=== PATIENT | female | born 1985 | race Caucasian/White ===

== ENCOUNTER 2016-11-17 20:27 | Emergency (ER) | payer OTHER ==
[~2016-11-17] VITALS: Ht 160 cm; Wt 113.4 kg
[~2016-11-17 20:27] MED LIST: ALAVERT10 M1 PO; AMBIEN5 MG PO; BACTRIM DS 8001 TA1 PO; BENADRYL25 M1 PO; BENADRYL50 MG PO; CIPRO500 MG PO; CIPROFLOXACIN500 MG PO; CLARITIN10 MG PO; CLARITIN5 MG/5 ML PO; CLEOCIN150 MG PO; CLINDAMYCIN HC300 MG PO; CLINDAMYCIN150 MG PO; CORTISPORIN SUS10 ML OT; DAYPRO600 M1 PO; EFFEXOR XR75 M1 PO; EFFEXOR XR75 MG PO; ELIMITE 5%60 GM T; ELMIRON100 MG PO; HYDROCODONE BIT1 T11 PO; LUNESTA1 M1 PO; MEDROL DOSEPAK4 MG PO; MONONESSA 35 MC1 TA2 PO; MUCINEX COLD-F177 ML PO; NORCO 5-325 TA1 EACH PO; PREDNISONE10 MG PO; PRILOSEC10 M1 PO; PRILOSEC10 MG; PRILOSEC20 M1 PO; PROAIR RESPICL90 MCG IH; PROVENTIL0.09 MG/A1 INH; PYRIDIUM200 M1 PO; PYRIDIUM200 MG PO; Peridex 473 ML473 ML PO; SINGULAIR10 M1 PO; SINGULAIR10 MG PO; TRAMADOL HCL50 MG PO; TYLENOL325 M1 PO; ULTRAM50 MG PO; VALIUM10 MG PO; VIBRAMYCIN100 MG PO; VICODIN 5/500 505 MG PO; XANAX2 MG PO; ZEGERID 40 MG PO; ZITHROMAX250 MG PO; ZOFRAN4 MG PO; ZOVIRAX 5%2 GM T; ZOVIRAX400 MG PO
[2016-11-17 20:59] VITALS: BP 141/99
[2016-11-17] MEDS ORDERED: NAPROSYN500 MG PO (21:35)
[2016-11-17] MEDS ORDERED: CLINDAMYCIN HC300 MG PO (21:35)
== END 2016-11-17 21:02 | disposition home or self-care (01) ==
LOC: ED 20:27
DX: K08.89 Other specified disorders of teeth and supporting structures (principal); Z98.890 Other specified postprocedural states; Z98.51 Tubal ligation status; Z90.49 Acquired absence of other specified parts of digestive tract; Z79.899 Other long term (current) drug therapy; Z91.030 Bee allergy status; Z88.5 Allergy status to narcotic agent; Z88.0 Allergy status to penicillin; Z88.6 Allergy status to analgesic agent

== ENCOUNTER 2016-12-02 02:14 | Emergency (ER) | payer OTHER ==
[~2016-12-02] VITALS: Ht 160 cm; Wt 113.4 kg
[~2016-12-02 02:14] MED LIST changes: +NAPROSYN500 MG PO
[2016-12-02 02:21] VITALS: BP 146/86
[2016-12-02 02:53] LABS: BILIRUBIN NEGATIVE (NEGATIVE); BLOOD 3+ (NEGATIVE); CLARITY CLOUDY (CLEAR); COLOR YELLOW (YELLOW); GLUCOSE NEGATIVE (NEGATIVE); KETONE NEGATIVE (NEGATIVE); LEUKO ESTERASE 3+ (NEGATIVE); NITRITE NEGATIVE (NEGATIVE); PH 5.5 (5.0-9.0); PROTEIN 2+ (NEGATIVE); SPECIFIC GRAVITY 1.015 (1.005-1.030); UROBILINOGEN 0.2 E.U./dl (0.2-1.0)
[2016-12-02 03:03] LABS: RBC 31-40 rbc/hpf (0-2); WBC TNTC wbc/hpf (0-5)
[2016-12-02 03:04] LABS: URINE REFLEX COMMENT YES (NO)
[2016-12-02] MEDS ORDERED: PYRIDIUM200 M1 PO (03:28)
[2016-12-02] MEDS ORDERED: BACTRIM DS 8001 TA1 PO (03:28)
== END 2016-12-02 05:01 | disposition home or self-care (01) ==
LOC: ED 02:14
PROVIDERS: Emergency Medicine
DX: N39.0 Urinary tract infection, site not specified (principal); R31.9 Hematuria, unspecified; Z98.51 Tubal ligation status; Z98.890 Other specified postprocedural states; Z90.49 Acquired absence of other specified parts of digestive tract; Z91.030 Bee allergy status; Z88.5 Allergy status to narcotic agent; Z88.0 Allergy status to penicillin; Z88.6 Allergy status to analgesic agent; Z79.899 Other long term (current) drug therapy

== ENCOUNTER 2016-12-19 20:27 | Emergency (ER) | payer OTHER ==
[~2016-12-19] VITALS: Ht 160 cm; Wt 113.4 kg
[2016-12-19 20:42] VITALS: BP 135/69
[2016-12-19] MEDS ORDERED: MEDROL DOSEPAK4 MG PO (20:51)
== END 2016-12-19 21:03 | disposition home or self-care (01) ==
LOC: ED 20:27
DX: T63.441A Toxic effect of venom of bees, accidental (unintentional), initial encounter (principal); Z90.49 Acquired absence of other specified parts of digestive tract; Z88.0 Allergy status to penicillin; Z88.6 Allergy status to analgesic agent; Z88.8 Allergy status to other drugs, medicaments and biological substances; Y92.9 Unspecified place or not applicable

== ENCOUNTER 2016-12-31 14:06 | Emergency (ER) | payer OTHER ==
[~2016-12-31] VITALS: Ht 160 cm; Wt 113.4 kg
[2016-12-31 14:30] VITALS: BP 148/80
== END 2016-12-31 16:30 | disposition home or self-care (01) ==
LOC: ED 14:06
DX: S93.601A Unspecified sprain of right foot, initial encounter (principal); Z91.030 Bee allergy status; Z88.0 Allergy status to penicillin; Z88.6 Allergy status to analgesic agent; Z79.899 Other long term (current) drug therapy; W18.39XA Other fall on same level, initial encounter; Y93.89 Activity, other specified; Y92.89 Other specified places as the place of occurrence of the external cause; Y99.8 Other external cause status

== ENCOUNTER → 2017-01-26 | Outpatient (CLI) | payer OTHER | END | disposition home or self-care (01) | LOC: MRI 01-23 09:00 | DX: S99.921A Unspecified injury of right foot, initial encounter (principal); Z91.81 History of falling; X58.XXXA Exposure to other specified factors, initial encounter; Y93.89 Activity, other specified; Y92.89 Other specified places as the place of occurrence of the external cause; Y99.8 Other external cause status ==

== ENCOUNTER 2017-02-09 07:41 | Emergency (ER) | payer OTHER ==
[~2017-02-09] VITALS: Ht 160 cm; Wt 113.4 kg
[2017-02-09 07:46] VITALS: BP 144/89
[2017-02-09] MEDS ORDERED: ZITHROMAX250 MG PO (08:07)
== END 2017-02-09 08:49 | disposition home or self-care (01) ==
LOC: ED 07:41
DX: J06.9 Acute upper respiratory infection, unspecified (principal); H92.02 Otalgia, left ear; R50.9 Fever, unspecified; Z88.0 Allergy status to penicillin; Z88.6 Allergy status to analgesic agent; Z91.030 Bee allergy status; Z79.899 Other long term (current) drug therapy

== ENCOUNTER 2017-02-21 03:04 | Emergency (ER) | payer OTHER ==
[~2017-02-21] VITALS: Ht 160 cm; Wt 108.9 kg
[2017-02-21 03:10] VITALS: BP 125/88
[2017-02-21] MEDS ORDERED: CORTISPORIN SUS10 ML OT (03:57)
[2017-02-21] MEDS ORDERED: NORCO 5-325 TA1 EACH PO (03:57)
[2017-02-21] MEDS ORDERED: CIPRO500 MG PO (03:57)
== END 2017-02-21 04:00 | disposition home or self-care (01) ==
LOC: ED 03:04
DX: H60.502 Unspecified acute noninfective otitis externa, left ear (principal); Z91.030 Bee allergy status; Z88.6 Allergy status to analgesic agent; Z88.0 Allergy status to penicillin; Z79.899 Other long term (current) drug therapy

== ENCOUNTER 2017-07-12 16:33 | Emergency (ER) | payer OTHER ==
[~2017-07-12] VITALS: Ht 162.5 cm; Wt 113.4 kg
[2017-07-12 18:45] VITALS: BP 135/83
[2017-07-12] MEDS ORDERED: PREDNISONE20 M1 PO (18:56)
[2017-07-12] MEDS ORDERED: ZYRTEC10 MG PO (18:56)
[2017-07-12] MEDS ORDERED: ROBITUSSIN DM 105 ML PO (18:59)
== END 2017-07-12 18:59 | disposition home or self-care (01) ==
LOC: ED 16:33
DX: B34.9 Viral infection, unspecified (principal); Z88.0 Allergy status to penicillin; Z91.030 Bee allergy status; Z88.8 Allergy status to other drugs, medicaments and biological substances; Z79.899 Other long term (current) drug therapy; Z98.51 Tubal ligation status

== ENCOUNTER 2017-09-03 19:01 | Emergency (ER) | payer OTHER ==
[~2017-09-03] VITALS: Ht 162.5 cm; Wt 114.3 kg
[~2017-09-03 19:01] MED LIST changes: +PREDNISONE20 M1 PO; +ROBITUSSIN DM 105 ML PO; +ZYRTEC10 MG PO
[2017-09-03 19:17] VITALS: BP 155/92
[2017-09-03] MEDS ORDERED: KENALOG 0.1%80 GM T (19:47)
== END 2017-09-03 19:53 | disposition home or self-care (01) ==
LOC: ED 19:01
DX: S20.469A Insect bite (nonvenomous) of unspecified back wall of thorax, initial encounter (principal); S10.86XA Insect bite of other specified part of neck, initial encounter; Z88.0 Allergy status to penicillin; Z91.030 Bee allergy status; Z88.8 Allergy status to other drugs, medicaments and biological substances; Z79.899 Other long term (current) drug therapy; W57.XXXA Bitten or stung by nonvenomous insect and other nonvenomous arthropods, initial encounter; Y93.89 Activity, other specified; Y92.89 Other specified places as the place of occurrence of the external cause; Y99.8 Other external cause status

== ENCOUNTER 2017-10-09 14:58 | Emergency (ER) | payer OTHER ==
[~2017-10-09 14:58] MED LIST changes: +KENALOG 0.1%80 GM T
[2017-10-09 15:01] VITALS: BP 130/78
[2017-10-09] MEDS ORDERED: ZOFRAN ODT4 MG SL (16:08)
== END 2017-10-09 16:12 | disposition home or self-care (01) ==
LOC: ED 14:58
DX: B34.9 Viral infection, unspecified (principal); Z98.890 Other specified postprocedural states; Z98.51 Tubal ligation status; Z90.49 Acquired absence of other specified parts of digestive tract; Z79.899 Other long term (current) drug therapy; Z91.030 Bee allergy status; Z88.5 Allergy status to narcotic agent; Z88.0 Allergy status to penicillin; Z88.6 Allergy status to analgesic agent

== ENCOUNTER 2018-02-13 20:17 | Emergency (ER) | payer OTHER ==
[~2018-02-13] VITALS: Ht 160 cm; Wt 115.7 kg
[~2018-02-13 20:17] MED LIST changes: +ZOFRAN ODT4 MG SL
[2018-02-13 20:18] VITALS: BP 142/80
[2018-02-13] MEDS ORDERED: CLINDAMYCIN HC300 MG PO (20:32)
== END 2018-02-13 21:08 | disposition home or self-care (01) ==
LOC: ED 20:17
DX: K08.89 Other specified disorders of teeth and supporting structures (principal); Z91.030 Bee allergy status; Z88.0 Allergy status to penicillin; Z88.6 Allergy status to analgesic agent; Z79.899 Other long term (current) drug therapy

== ENCOUNTER 2018-04-03 13:29 | Emergency (ER) | payer OTHER ==
[~2018-04-03] VITALS: Ht 160 cm; Wt 72.6 kg
--- NOTE | ~2018-04-03 | EKG ---
[place], [place] ELECTROCARDIOGRAM REPORT NAME: LUAN PAINTER UNIT #: [id number] ROOM: DOCTOR: EPIPHANY DRAFT REPORT BIRTHDATE: [birth year] [facility] Test Date: 2018-04-03 Test Time: 14:56:48 Pat Name: LUAN PAINTER Department: Room: Gender: F Adobe Developer: Sonal Herron : 1985 Requested By: NANCY BANSAL Order Number: [id number] Reading MD: Ludwig Britton MD Measurements Intervals [place] Rate: 88 P: -2 MO: 173 QRS: 64 QRSD: 84 T: 47 QT: 347 QTc: 420 Interpretive Statements Sinus rhythm Normal ECG No previous ECG available for comparison Electronically Signed On 04-08-2018 12:12:09 PDT by Ludwig Britton MD CM:EKGRPT:ELECTROCARDIOGRAM REPORT [id number] NANCY BANSAL EPIPHANY DRAFT REPORT NANCY BANSAL
[2018-04-03 13:32] VITALS: BP 149/91
[2018-04-03] MEDS ORDERED: BUPROPION HCL300 MG PO (14:07)
[2018-04-03] MEDS ORDERED: ADDERALL XR20 MG PO (14:07)
[2018-04-03] MEDS ORDERED: MINIPRESS1 M1 PO (14:08)
[2018-04-03] MEDS ORDERED: HYDROXYZINE PAM50 MG PO (14:09)
[2018-04-03 14:51] LABS: BASO # 0.1 10*3/uL (0.0-0.1); BASO % 0.6 % (0.0-1.0); EOS # 0.1 10*3/uL (0.0-0.4); EOS % 1.4 % (1.0-4.0); HEMATOCRIT 40.5 % (37.0-47.0); LYMPH # 1.4 10*3/uL (1.3-4.4); LYMPH % 14.3 % (27.0-41.0); MEAN CELL VOLUME 86.2 fl (81.0-99.0); MEAN CORPUSCULAR HGB 27.7 pg (27.0-31.0); MEAN CORPUSCULAR HGB CONC 32.1 g/dl (33.0-37.0); MEAN PLATELET VOLUME 10.8 fl (9.6-12.3); MONO # 0.6 10*3/uL (0.1-1.0); MONO % 5.5 % (3.0-9.0); NEUT # 7.8 10*3/uL (2.3-7.9); PLATELET COUNT AUTOMATED 281 10*3/uL (130-400); RED CELL DISTRI WIDTH 12.6 % (0-14.5)
[2018-04-03 15:07] LABS: ALBUMIN 3.6 gm/dl (3.1-4.5); ALKALINE PHOSPHATASE 95 U/L (45-117); BUN 6 mg/dl (7-24); CHLORIDE 107 mmol/L (98-107); CREATININE 0.89 mg/dL (0.55-1.02); POTASSIUM 3.5 mmol/L (3.5-5.1); SGOT/AST 11 IU/L (3-35); SGPT/ALT 20 U/L (12-78); SODIUM 140 mmol/L (136-145); TOTAL PROTEIN 7.8 gm/dL (6.4-8.2)
[2018-04-03 15:13] LABS: TROPONIN I < 0.015 ng/ml (<0.045)
[2018-04-03] MEDS ORDERED: PREDNISONE10 MG PO (15:55)
[2018-04-03] MEDS ORDERED: ZITHROMAX250 MG PO (15:55)
[2018-05-21] MEDS ORDERED: BUPROPION HYDR150 M3 PO (10:33)
[2018-05-21] MEDS ORDERED: PRILOSEC20 M1 PO (10:35)
[2018-05-21] MEDS ORDERED: ZYRTEC10 MG PO (10:36)
[2018-05-21] MEDS ORDERED: SINGULAIR5 MG PO (10:36)
[2018-05-22] MEDS ORDERED: CLINDAMYCIN150 MG PO (08:57)
[2018-05-22] MEDS ORDERED: NORCO 5-325 TA1 EACH PO (08:58)
== END 2018-04-03 16:11 | disposition home or self-care (01) ==
LOC: ED 13:29
PROVIDERS: Nurse Practitioner
DX: J40 Bronchitis, not specified as acute or chronic (principal); H92.09 Otalgia, unspecified ear; Z90.49 Acquired absence of other specified parts of digestive tract; Z98.51 Tubal ligation status; Z79.899 Other long term (current) drug therapy; Z91.030 Bee allergy status; Z88.0 Allergy status to penicillin; Z88.6 Allergy status to analgesic agent; Z88.8 Allergy status to other drugs, medicaments and biological substances

== ENCOUNTER → 2018-05-08 | Outpatient (CLI) | payer OTHER ==
[~2018-05-08] MED LIST changes: +ADDERALL XR20 MG PO; +BUPROPION HCL300 MG PO; +BUPROPION HYDR150 M3 PO; +HYDROXYZINE PAM50 MG PO; +MINIPRESS1 M1 PO; +SINGULAIR5 MG PO
[2018-05-08 13:32] LABS: BASO # 0.1 10*3/uL (0.0-0.1); BASO % 0.9 % (0.0-1.0); EOS # 0.1 10*3/uL (0.0-0.4); EOS % 1.3 % (1.0-4.0); HEMATOCRIT 40.2 % (37.0-47.0); HEMOGLOBIN 12.8 g/dl (12.0-16.0); LYMPH # 2.2 10*3/uL (1.3-4.4); LYMPH % 32.1 % (27.0-41.0); MEAN CELL VOLUME 86.8 fl (81.0-99.0); MEAN CORPUSCULAR HGB 27.6 pg (27.0-31.0); MEAN CORPUSCULAR HGB CONC 31.8 g/dl (33.0-37.0); MONO # 0.3 10*3/uL (0.1-1.0); MONO % 3.9 % (3.0-9.0); NEUT # 4.2 10*3/uL (2.3-7.9); NEUT % 61.7 % (47.0-73.0); PLATELET COUNT AUTOMATED 345 10*3/uL (130-400); RED BLOOD COUNT 4.63 10*6/uL (4.10-5.10); RED CELL DISTRI WIDTH 12.9 % (0-14.5); WHITE BLOOD COUNT 6.8 10*3/uL (4.8-10.8)
[2018-05-08 14:02] LABS: ALBUMIN 3.6 gm/dl (3.1-4.5); ALKALINE PHOSPHATASE 78 U/L (45-117); BUN 9 mg/dl (7-24); CHLORIDE 106 mmol/L (98-107); CHOLESTEROL 185 mg/dL (<200); CREATININE 0.74 mg/dL (0.55-1.02); HDL CHOLESTEROL 73 mg/dl (40-60); LDL CHOLESTEROL 97 mg/dL (9-159); LIPASE 152 U/L (73-393); POTASSIUM 3.7 mmol/L (3.5-5.1); SGOT/AST 15 IU/L (3-35); SGPT/ALT 24 U/L (12-78); SODIUM 140 mmol/L (136-145); TOTAL PROTEIN 8.1 gm/dL (6.4-8.2); TRIGLYCERIDES 74 mg/dl (<150); VLDL CHOLESTEROL 15 mg/dL (6-40)
[2018-05-08 14:23] LABS: VITAMIN D, 25-HYDROXY 25.2 ng/mL (30-100)
== END | disposition home or self-care (01) ==
LOC: LAB 12:41 → CT 13:00
PROVIDERS: Nurse Practitioner Family
DX: K21.9 Gastro-esophageal reflux disease without esophagitis (principal); J45.909 Unspecified asthma, uncomplicated; R11.0 Nausea; K92.1 Melena; Z90.49 Acquired absence of other specified parts of digestive tract

== ENCOUNTER → 2018-05-28 | Outpatient (CLI) | payer OTHER | LOC: US 13:13 | DX: R10.2 Pelvic and perineal pain (principal) ==

== ENCOUNTER 2019-01-23 22:22 | Emergency (ER) | payer OTHER ==
[~2019-01-23] VITALS: Ht 160 cm; Wt 114.8 kg
[~2019-01-23 22:22] MED LIST changes: +KENALOG 0.025%15 GM T
[2019-01-23 22:23] VITALS: BP 169/88
== END 2019-01-24 00:49 | disposition home or self-care (01) ==
LOC: ED 22:22
DX: S93.602A Unspecified sprain of left foot, initial encounter (principal); Z79.899 Other long term (current) drug therapy; Z91.030 Bee allergy status; Z88.0 Allergy status to penicillin; Z88.6 Allergy status to analgesic agent; W23.0XXA Caught, crushed, jammed, or pinched between moving objects, initial encounter; Y93.89 Activity, other specified; Y92.89 Other specified places as the place of occurrence of the external cause; Y99.0 Civilian activity done for income or pay

== ENCOUNTER 2019-02-11 12:49 | Emergency (ER) | payer OTHER ==
[~2019-02-11] VITALS: Ht 160 cm; Wt 111.1 kg
[2019-02-11 12:51] VITALS: BP 155/80
[2019-02-11 13:23] LABS: BILIRUBIN NEGATIVE (NEGATIVE); BLOOD 3+ (NEGATIVE); CLARITY CLOUDY (CLEAR); COLOR YELLOW (YELLOW); GLUCOSE NEGATIVE (NEGATIVE); KETONE NEGATIVE (NEGATIVE); LEUKO ESTERASE 3+ (NEGATIVE); NITRITE NEGATIVE (NEGATIVE); PH 7.5 (5.0-9.0); UROBILINOGEN 0.2 E.U./dl (0.2-1.0)
[2019-02-11 13:32] LABS: RBC TNTC rbc/hpf (0-2); WBC TNTC wbc/hpf (0-5)
[2019-02-11 13:33] LABS: BACTERIA 2+
[2019-02-11 13:36] LABS: BASO # 0.1 10*3/uL (0.0-0.1); BASO % 0.5 % (0.0-1.0); EOS # 0.2 10*3/uL (0.0-0.4); EOS % 2.1 % (1.0-4.0); HEMATOCRIT 41.1 % (37.0-47.0); HEMOGLOBIN 13.2 g/dl (12.0-16.0); LYMPH # 1.6 10*3/uL (1.3-4.4); LYMPH % 15.4 % (27.0-41.0); MEAN CORPUSCULAR HGB 27.6 pg (27.0-31.0); MEAN CORPUSCULAR HGB CONC 32.1 g/dl (33.0-37.0); MEAN PLATELET VOLUME 10.8 fl (9.6-12.3); MONO # 0.5 10*3/uL (0.1-1.0); NEUT # 8.2 10*3/uL (2.3-7.9); NEUT % 76.7 % (47.0-73.0); PLATELET COUNT AUTOMATED 312 10*3/uL (130-400); RED BLOOD COUNT 4.78 10*6/uL (4.10-5.10); RED CELL DISTRI WIDTH 12.8 % (0-14.5); WHITE BLOOD COUNT 10.6 10*3/uL (4.8-10.8)
[2019-02-11 13:51] LABS: ALBUMIN 3.7 gm/dl (3.1-4.5); ALKALINE PHOSPHATASE 89 U/L (45-117); BUN 9 mg/dl (7-24); CHLORIDE 108 mmol/L (98-107); CREATININE 0.66 mg/dL (0.55-1.02); POTASSIUM 4.1 mmol/L (3.5-5.1); SGOT/AST 14 IU/L (3-35); SGPT/ALT 19 U/L (12-78); SODIUM 142 mmol/L (136-145)
[2019-02-11] MEDS ORDERED: SEPTDS PO (15:05)
[2019-02-11] MEDS ORDERED: PYRIDIUM200 M1 PO (15:05)
== END 2019-02-11 15:08 | disposition home or self-care (01) ==
LOC: ED 12:49
PROVIDERS: Nurse Practitioner Family
DX: N39.0 Urinary tract infection, site not specified (principal); Z91.030 Bee allergy status; Z88.8 Allergy status to other drugs, medicaments and biological substances; Z88.0 Allergy status to penicillin; Z79.899 Other long term (current) drug therapy; Z90.49 Acquired absence of other specified parts of digestive tract

== ENCOUNTER 2019-02-22 22:44 | Emergency (ER) | payer OTHER ==
[~2019-02-22] VITALS: Ht 160 cm; Wt 112.0 kg
--- NOTE | ~2019-02-22 | EKG ---
[place], [place] ELECTROCARDIOGRAM REPORT NAME: LUAN PAINTER UNIT #: [id number] ROOM: DOCTOR: EPIPHANY DRAFT REPORT BIRTHDATE: [birth year] [facility] [place] Test Date: 2019-02-22 Test Time: 23:41:19 Pat Name: LUAN PAINTER Department: Room: Gender: F Dinkey Locomotive Engineer: Kristan Appiah : 1985 Requested By: LUAN BANSAL Order Number: [id number] Reading MD: Jose Guadalupe Syed MD Measurements Intervals [place] Rate: 72 P: 19 [place]: 173 QRS: 29 QRSD: 89 T: 23 QT: 376 QTc: 412 Interpretive Statements Sinus rhythm ST elevation prob early repol Electronically Signed On 02-23-2019 13:44:48 PDT by Jose Guadalupe Syed MD CM:EKGRPT:ELECTROCARDIOGRAM REPORT [id number] LUAN BANSAL EPIPHANY DRAFT REPORT LUAN BANSAL
[~2019-02-22 22:44] MED LIST changes: +SEPTDS PO
[2019-02-22 22:45] VITALS: BP 139/104
[2019-02-22 23:34] LABS: BASO # 0.1 10*3/uL (0.0-0.1); BASO % 0.8 % (0.0-1.0); EOS # 0.2 10*3/uL (0.0-0.4); EOS % 1.9 % (1.0-4.0); HEMOGLOBIN 12.9 g/dl (12.0-16.0); LYMPH # 3.5 10*3/uL (1.3-4.4); LYMPH % 34.7 % (27.0-41.0); MEAN CELL VOLUME 87.4 fl (81.0-99.0); MEAN CORPUSCULAR HGB 27.5 pg (27.0-31.0); MEAN CORPUSCULAR HGB CONC 31.5 g/dl (33.0-37.0); MEAN PLATELET VOLUME 10.8 fl (9.6-12.3); MONO # 0.5 10*3/uL (0.1-1.0); NEUT # 5.8 10*3/uL (2.3-7.9); NEUT % 57.2 % (47.0-73.0); PLATELET COUNT AUTOMATED 355 10*3/uL (130-400); RED BLOOD COUNT 4.69 10*6/uL (4.10-5.10); RED CELL DISTRI WIDTH 12.8 % (0-14.5)
[2019-02-22 23:53] LABS: ALBUMIN 3.5 gm/dl (3.1-4.5); ALKALINE PHOSPHATASE 78 U/L (45-117); BUN 12 mg/dl (7-24); CHLORIDE 103 mmol/L (98-107); CREATININE 0.71 mg/dL (0.55-1.02); POTASSIUM 3.7 mmol/L (3.5-5.1); SGOT/AST 8 IU/L (3-35); SGPT/ALT 16 U/L (12-78); SODIUM 137 mmol/L (136-145); TOTAL PROTEIN 7.9 gm/dL (6.4-8.2)
[2019-02-23 00:55] LABS: BILIRUBIN NEGATIVE (NEGATIVE); BLOOD NEGATIVE (NEGATIVE); CLARITY CLEAR (CLEAR); COLOR YELLOW (YELLOW); GLUCOSE NEGATIVE (NEGATIVE); KETONE NEGATIVE (NEGATIVE); LEUKO ESTERASE NEGATIVE (NEGATIVE); NITRITE NEGATIVE (NEGATIVE); PH 6.5 (5.0-9.0); UROBILINOGEN 0.2 E.U./dl (0.2-1.0)
[2019-02-23 01:05] LABS: URINE AMPHETAMINES < 1000 (1000ng/ml); URINE BARBITURATES < 200 (200ng/ml); URINE BENZODIAZEPINES < 200 (200ng/ml); URINE CANNABINOIDS (THC) < 50 (50ng/ml); URINE COCAINE < 300 (300ng/ml); URINE METHADONE < 300 (300ng/ml); URINE OPIATES > 300 (300ng/ml)
[2019-02-23 01:06] LABS: URINE PHENCYCLIDINE < 25 (25ng/ml)
[2019-02-23 01:19] LABS: BACTERIA TRACE; EPITHELIAL CELLS 0-5
== END 2019-02-23 01:53 | disposition home or self-care (01) ==
LOC: ED 22:44
PROVIDERS: Nurse Practitioner Family
DX: R55 Syncope and collapse (principal); F17.200 Nicotine dependence, unspecified, uncomplicated; Z91.030 Bee allergy status; Z88.8 Allergy status to other drugs, medicaments and biological substances; Z88.0 Allergy status to penicillin; Z79.2 Long term (current) use of antibiotics; Z79.899 Other long term (current) drug therapy; Z90.49 Acquired absence of other specified parts of digestive tract

== ENCOUNTER → 2019-04-10 | Day surgery (SDC) | payer OTHER ==
[~2019-04-10] VITALS: Ht 160 cm; Wt 109.8 kg
[~2019-04-10] MED LIST changes: +LATU20TA PO; +REMERON30 M1 PO; +ZANTAC 150150 MG PO
--- NOTE | ~2019-04-10 | O ---
[place], [place] OPERATIVE NOTE NAME: LUAN PAINTER UNIT #: [id number] ROOM: DOCTOR: DELMIS STONER MD BIRTHDATE: [birth year] DOS: 04/10/2019 INDICATIONS: This patient is a 33-year-old patient who has presented with chief complaint of abdominal pain has been treated for presumptive diagnosis of diverticulitis, cystitis. ALLERGIES: IBUPROFEN AND PENICILLIN. FAMILY HISTORY: Colonic carcinoma in great aunt and grandfather. PAST SURGICAL HISTORY: Cholecystectomy. PAST MEDICAL HISTORY: Obesity, ADHD, PTS, and depression. SOCIAL HISTORY: Vaping. PROCEDURE: Today's procedure part of investigation is colonoscopy. PREMEDICATION: Propofol. SCOPE: Olympus forward-viewing colonoscope 10L video. REPORT: After putting the patient in left lateral position and application of lubricant to the scope, the scope was introduced. Thereafter, under direct visualization, advanced through the length of colon without difficulty. Hepatic flexure is tortuous. After appropriate maneuver, the scope was negotiated to base of cecum. Photographic series obtained. Air was gradually suctioned, scope was gradually withdrawn from ascending, transverse, descending colon. The patient extubated, tolerated the procedure well. IMPRESSION: Tortuous colon at the hepatic flexure; otherwise, normal colonoscopic examination. PLAN: High fiber diet. ACTIVITY: Ad nitish. FOLLOWUP: As outpatient. The patient was advised with high fiber and no fat diet. [place], [place] OPERATIVE NOTE NAME: LUAN PAINTER UNIT #: [id number] ROOM: DOCTOR: DELMIS STONER MD BIRTHDATE: [birth year] DELMIS STONER MD CM:OPRECORD:OPERATIVE NOTE 1010 1231 DELMIS STONER MD 04/10/19 1231 interface
[2019-04-10 09:11] VITALS: BP 134/83
[2019-04-10 10:05] VITALS: BP 126/90
[2019-04-10 10:20] VITALS: BP 122/80
[2019-04-10 10:35] VITALS: BP 132/68
== END | disposition home or self-care (01) ==
LOC: SDC 04-05 12:30
DX: R10.9 Unspecified abdominal pain (principal); K63.89 Other specified diseases of intestine; K21.9 Gastro-esophageal reflux disease without esophagitis; J45.909 Unspecified asthma, uncomplicated; F41.9 Anxiety disorder, unspecified; F32.9 Major depressive disorder, single episode, unspecified; E66.01 Morbid (severe) obesity due to excess calories; Z98.51 Tubal ligation status; Z98.890 Other specified postprocedural states; Z88.8 Allergy status to other drugs, medicaments and biological substances; Z88.0 Allergy status to penicillin; Z87.19 Personal history of other diseases of the digestive system; Z80.0 Family history of malignant neoplasm of digestive organs; Z90.49 Acquired absence of other specified parts of digestive tract; Z79.899 Other long term (current) drug therapy; Z68.41 Body mass index [BMI] 40.0-44.9, adult

== ENCOUNTER → 2019-04-12 | Outpatient (CLI) | payer OTHER | END | disposition home or self-care (01) | LOC: US 12:42 | DX: R10.9 Unspecified abdominal pain (principal) ==

== ENCOUNTER 2019-04-13 20:03 | Emergency (ER) | payer OTHER ==
[~2019-04-13] VITALS: Ht 160 cm; Wt 109.8 kg
[2019-04-13 20:05] VITALS: BP 129/80
[2019-04-13 20:43] LABS: BASO # 0.1 10*3/uL (0.0-0.1); BASO % 0.4 % (0.0-1.0); EOS # 0.1 10*3/uL (0.0-0.4); EOS % 0.4 % (1.0-4.0); HEMATOCRIT 39.7 % (37.0-47.0); HEMOGLOBIN 12.6 g/dl (12.0-16.0); LYMPH # 1.7 10*3/uL (1.3-4.4); LYMPH % 13.3 % (27.0-41.0); MEAN CELL VOLUME 86.3 fl (81.0-99.0); MEAN CORPUSCULAR HGB 27.4 pg (27.0-31.0); MEAN CORPUSCULAR HGB CONC 31.7 g/dl (33.0-37.0); MEAN PLATELET VOLUME 11.1 fl (9.6-12.3); MONO # 0.4 10*3/uL (0.1-1.0); MONO % 3.5 % (3.0-9.0); NEUT # 10.4 10*3/uL (2.3-7.9); NEUT % 82.2 % (47.0-73.0); PLATELET COUNT AUTOMATED 358 10*3/uL (130-400); RED CELL DISTRI WIDTH 12.9 % (0-14.5); WHITE BLOOD COUNT 12.6 10*3/uL (4.8-10.8)
[2019-04-13 21:00] LABS: ALBUMIN 3.7 gm/dl (3.1-4.5); ALKALINE PHOSPHATASE 77 U/L (45-117); BUN 9 mg/dl (7-24); CHLORIDE 103 mmol/L (98-107); CREATININE 0.76 mg/dL (0.55-1.02); POTASSIUM 3.7 mmol/L (3.5-5.1); SGOT/AST 9 IU/L (3-35); SGPT/ALT 18 U/L (12-78); SODIUM 137 mmol/L (136-145); TOTAL PROTEIN 7.9 gm/dL (6.4-8.2)
== END 2019-04-13 22:45 | disposition home or self-care (01) ==
LOC: ED 20:03
PROVIDERS: Physician Assistant
DX: R51 Headache (principal); R42 Dizziness and giddiness; R53.1 Weakness; Z91.030 Bee allergy status; Z88.8 Allergy status to other drugs, medicaments and biological substances; Z88.0 Allergy status to penicillin; Z79.899 Other long term (current) drug therapy

== ENCOUNTER 2019-05-31 23:52 | Emergency (ER) | payer OTHER ==
[~2019-05-31] VITALS: Ht 160 cm; Wt 114.8 kg
[2019-05-31 23:53] VITALS: BP 144/78
== END 2019-06-01 01:20 | disposition home or self-care (01) ==
LOC: ED 23:52
DX: S60.032A Contusion of left middle finger without damage to nail, initial encounter (principal); K21.9 Gastro-esophageal reflux disease without esophagitis; F17.200 Nicotine dependence, unspecified, uncomplicated; Z91.030 Bee allergy status; Z88.6 Allergy status to analgesic agent; Z88.0 Allergy status to penicillin; Z79.899 Other long term (current) drug therapy; W23.0XXA Caught, crushed, jammed, or pinched between moving objects, initial encounter; Y93.89 Activity, other specified; Y92.89 Other specified places as the place of occurrence of the external cause; Y99.8 Other external cause status

== ENCOUNTER → 2020-02-06 | Outpatient (CLI) | payer OTHER | END | disposition home or self-care (01) | LOC: US 07:29 | DX: R11.11 Vomiting without nausea (principal); Z90.49 Acquired absence of other specified parts of digestive tract ==

== ENCOUNTER 2024-02-15 17:26 | Emergency (ER) | payer OTHER ==
[~2024-02-15] VITALS: Ht 165.1 cm; Wt 104.3 kg
[2024-02-15 17:33] VITALS: BP 122/76
[2024-02-15] MEDS ORDERED: Ketorolac Tromethamine 30 MG/ML VIAL IV ONE (17:45)
[2024-02-15] MEDS ORDERED: SODIUM CHLORIDE 0.9% 1,000 ML IV ONE (17:45)
[2024-02-15] MEDS ORDERED: Ondansetron Hydrochloride 4 MG/2 ML VIAL IV ONE (17:45)
[2024-02-15 17:53] LABS: BASO % 0.6 % (0.0-1.0); EOS # 0.2 10*3/uL (0.0-0.4); EOS % 2.3 % (1.0-4.0); HEMATOCRIT 42.4 % (37.0-47.0); LYMPH % 28.3 % (27.0-41.0); MEAN CORPUSCULAR HGB 28.9 pg (27.0-31.0); MEAN CORPUSCULAR HGB CONC 32.1 g/dl (33.0-37.0); MEAN PLATELET VOLUME 10.4 fl (9.6-12.3); MONO # 0.4 10*3/uL (0.1-1.0); MONO % 6.2 % (3.0-9.0); NEUT # 4.4 10*3/uL (2.3-7.9); NEUT % 62.5 % (47.0-73.0); PLATELET COUNT AUTOMATED 324 10*3/uL (130-400); RED BLOOD COUNT 4.71 10*6/uL (4.10-5.10)
[2024-02-15 18:14] LABS: ALKALINE PHOSPHATASE 100 U/L (46-116); BUN 8 mg/dl (9-23); CHLORIDE 106 mmol/L (98-107); LIPASE 27 U/L (12-53); POTASSIUM 4.2 mmol/L (3.4-5.1); SGPT/ALT 19 U/L (5-49); TOTAL PROTEIN 7.3 gm/dL (6.0-8.0)
[2024-02-15 18:17] LABS: BETA-HCG, QUANT < 3.0 mIU/mL (3-10)
[2024-02-15 19:11] LABS: BILIRUBIN 1+ (Negative); BLOOD Negative (Negative); CLARITY Clear (Clear); COLOR Dark Yellow (Yellow); GLUCOSE Negative (Negative); KETONE Trace (Negative); LEUKO ESTERASE Trace (Negative); NITRITE Negative (Negative); PH 5.5 (4.5-8.0); SPECIFIC GRAVITY >= 1.030 (1.001-1.030)
[2024-02-15 19:22] LABS: BACTERIA 2+; CALCIUM OXALATE CRYSTALS Trace
== END 2024-02-15 21:18 | disposition home or self-care (01) ==
LOC: ED 17:26
PROVIDERS: Physician Assistant Medical
DX: R10.30 Lower abdominal pain, unspecified (principal); F31.9 Bipolar disorder, unspecified; F41.9 Anxiety disorder, unspecified; K21.9 Gastro-esophageal reflux disease without esophagitis; Z87.442 Personal history of urinary calculi; Z91.030 Bee allergy status; Z88.0 Allergy status to penicillin; Z88.6 Allergy status to analgesic agent; Z88.8 Allergy status to other drugs, medicaments and biological substances; Z98.890 Other specified postprocedural states; Z90.49 Acquired absence of other specified parts of digestive tract; Z98.51 Tubal ligation status

== ENCOUNTER 2025-04-06 16:08 | Emergency (ER) | payer OTHER ==
[~2025-04-06] VITALS: Ht 160 cm; Wt 78.5 kg
[2025-04-06 16:22] VITALS: BP 118/74
[2025-04-06] MEDS ORDERED: VIBRAMYCIN100 MG PO (17:07)
== END 2025-04-06 17:19 | disposition home or self-care (01) ==
LOC: ED 16:08
DX: L02.412 Cutaneous abscess of left axilla (principal); I10 Essential (primary) hypertension; F41.9 Anxiety disorder, unspecified; K21.9 Gastro-esophageal reflux disease without esophagitis; F31.9 Bipolar disorder, unspecified; Z98.51 Tubal ligation status; Z87.440 Personal history of urinary (tract) infections; Z91.030 Bee allergy status; Z88.0 Allergy status to penicillin; Z88.8 Allergy status to other drugs, medicaments and biological substances; Z87.442 Personal history of urinary calculi; Z98.890 Other specified postprocedural states